=== PATIENT | female | born 1965 | race Caucasian/White ===

== ENCOUNTER 2022-04-05 07:01 | Inpatient (IN) | payer BC ==
[2022-04-05] MEDS ORDERED: Acetaminophen 325 MG TAB PO PRN (07:15)
[2022-04-05] MEDS ORDERED: Ondansetron ODT 4 MG TAB SL PRN (07:15)
[2022-04-05] MEDS ORDERED: Ondansetron PF 4 MG/2 ML Vial IVP PRN (07:15)
[2022-04-05] MEDS ORDERED: Sodium Bicarbonate 150 MEQ in Dextrose 5% in Water 1,000 ML IV SCH (07:15)
[2022-04-05] MEDS ORDERED: hydrALAZINE 20 MG/ML VIAL SLOW IVP SCH (08:30)
[2022-04-05] MEDS ORDERED: HumaLOG 300 UNITS/3 ML VIAL SC PRN (09:13)
[2022-04-05] MEDS ORDERED: Dextrose 50% Abboject 50 ML SYRINGE SLOW IVP PRN (09:13)
[2022-04-05] MEDS ORDERED: Dextrose 5% in Water 1,000 ML IV PRN (09:13)
[2022-04-05] MEDS: Timolol 0.5% Ophth Soln 5 ml Bottle EA EYE SCH ×2 (10:37→20:30)
[2022-04-05] MEDS: Brimonidine Tartrate 0.2% Ophth Soln 5 ml Bottle EA EYE SCH ×2 (10:37→20:30)
[2022-04-05] MEDS: Amlodipine 5 MG TAB PO SCH (10:37)
[2022-04-05] MEDS: cefTRIAXone\\ROCEPHIN 1 GM in Sodium Chloride 0.9% 100 ML IVPB SCH (10:43)
[2022-04-05 10:45] LABS: Hemoglobin 9.6 g/dL (12.0-16.0); Platelet Count 113 thou/uL (130-400)
[2022-04-05 11:01] LABS: Anion Gap 19 mmol/L (10-20); BUN (Urea Nitrogen) 92 mg/dL (9.8-20.1); Calc. Creatinine Clearance 8 mL/min (70-130); Calcium 8.1 mg/dL (7.8-10.44); Carbon Dioxide 15 mmol/L (22-29); Chloride 110 mmol/L (98-107); Estimated GFR 4; Glucose 85 mg/dL (70-105); Potassium 4.2 mmol/L (3.5-5.1); Sodium 140 mmol/L (136-145)
[2022-04-05 12:05] LABS: Hemoglobin 8.6 g/dL (12.0-16.0)
[2022-04-05 12:17] LABS: Glucose 77 mg/dL (70-105)
[2022-04-05] MEDS: hydrALAZINE 20 MG/ML VIAL SLOW IVP PRN (13:40)
[2022-04-05 16:53] LABS: Glucose 92 mg/dL (70-105)
[2022-04-05] MEDS: Carvedilol 25 MG TAB PO SCH (17:09)
[2022-04-05 18:18] LABS: Bacteria/HPF 1+ HPF (None Seen); Bilirubin Negative (Negative); Blood, Urine 2+ (Negative); Clarity Clear (Clear); Glucose, Urine (Dipstick) 70 mg/dL (Negative); Ketone, Urine Negative (Negative); Leukocyte 75 Leu/uL (Negative); Nitrite Negative (Negative); Protein, Urine (Dipstick) 300 mg/dL (Neg-Trace); RBC/HPF 0-3 HPF (0-3); Specific Gravity, Urine 1.008 (1.002-1.036); Squamous Epithelial 0-3 HPF (0-3); Urobilinogen Normal mg/dL (Less than 2)
[2022-04-05 18:19] LABS: Urine Culture Reflex Yes Yes
[2022-04-05] MEDS ORDERED: Sodium Chloride 0.65% Nasal 44 ML BOT EA NARE PRN (20:11)
[2022-04-05] MEDS: Loratadine 10 MG TAB PO PRN (20:30)
[2022-04-05] MEDS: Rosuvastatin 10 MG TAB PO SCH (20:30)
[2022-04-05 20:43] LABS: Albumin 3.3 g/dL (3.5-5.0)
[2022-04-05 20:46] LABS: Globulin 3.2 g/dL (2.4-3.5); Protein, Total 6.5 g/dL (6.0-8.3)
[2022-04-05 20:47] LABS: Bilirubin, Total 0.5 mg/dL (0.2-1.2)
[2022-04-05 20:48] LABS: Alkaline Phosphatase 70 U/L (40-110)
[2022-04-05 20:50] LABS: AST (SGOT) 33 U/L (5-34)
[2022-04-05 20:51] LABS: ALT (SGPT) 19 U/L (8-55)
[2022-04-05 20:57] LABS: Glucose 178 mg/dL (70-105)
[2022-04-05] MEDS: Insulin Glargine 30 UNITS/0.3 ML VIAL SC SCH (21:22)
[2022-04-06] MEDS: hydrALAZINE 20 MG/ML VIAL SLOW IVP PRN ×2 (00:03→05:41)
[2022-04-06] MEDS: Acetaminophen 325 MG TAB PO PRN ×2 (01:31→10:13)
[2022-04-06 04:50] LABS: ALT (SGPT) 17 U/L (8-55); AST (SGOT) 31 U/L (5-34); Alkaline Phosphatase 64 U/L (40-110); Anion Gap 20 mmol/L (10-20); BUN (Urea Nitrogen) 88 mg/dL (9.8-20.1); Bilirubin, Total 0.4 mg/dL (0.2-1.2); Calc. Creatinine Clearance 8 mL/min (70-130); Calcium 7.9 mg/dL (7.8-10.44); Carbon Dioxide 17 mmol/L (22-29); Chloride 107 mmol/L (98-107); Estimated GFR 4; Globulin 2.9 g/dL (2.4-3.5); Glucose 67 mg/dL (70-105); Potassium 4.2 mmol/L (3.5-5.1); Protein, Total 5.9 g/dL (6.0-8.3); Sodium 140 mmol/L (136-145)
[2022-04-06 05:19] LABS: #Eosinphils 0.1 thou/uL (0.0-0.7); #Lymphocytes 0.7 thou/uL (1.20-3.40); #Monocytes 0.4 thou/uL (0.11-0.59); #Neutrophils 3.3 thou/uL (1.40-6.50); %Basophils 0.4 % (0.0-1.0); %Eosinophils 2.3 % (0.0-10.0); %Lymphocytes 14.3 % (21.0-51.0); %Monocytes 9.5 % (0.0-10.0); %Neutrophils 73.6 % (42.0-75.0); Hemoglobin 8.5 g/dL (12.0-16.0); Mean Corpuscular HGB CONC 33.9 g/dL (32.0-36.0); Mean Corpuscular Hemoglobin 30.7 pg (27.0-31.0); Mean Corpuscular Volume 90.6 fL (78.0-98.0); Mean Platelet Volume 7.3 fL (7.4-10.4); Platelet Count 105 thou/uL (130-400); RBC Distribution Width 12.1 % (11.5-14.5); Red Blood Cell (RBC) Count 2.76 mill/uL (4.20-5.40); White Blood Cell (WBC) Count 4.5 thou/uL (4.8-10.8)
[2022-04-06] MEDS: cefTRIAXone\\ROCEPHIN 1 GM in Sodium Chloride 0.9% 100 ML IVPB SCH (10:09)
[2022-04-06] MEDS: Brimonidine Tartrate 0.2% Ophth Soln 5 ml Bottle EA EYE SCH ×2 (10:10→20:49)
[2022-04-06] MEDS: Carvedilol 25 MG TAB PO SCH ×2 (10:10→16:26)
[2022-04-06] MEDS: Timolol 0.5% Ophth Soln 5 ml Bottle EA EYE SCH ×2 (10:10→20:49)
[2022-04-06] MEDS: Amlodipine 5 MG TAB PO SCH (10:10)
[2022-04-06] MEDS: Loratadine 10 MG TAB PO PRN (10:10)
[2022-04-06] MEDS: Rosuvastatin 10 MG TAB PO SCH (20:46)
[2022-04-06] MEDS: Insulin Glargine 30 UNITS/0.3 ML VIAL SC SCH (20:47)
[2022-04-06] MEDS: Melatonin 3 MG TAB PO PRN (20:47)
[2022-04-07] MEDS: Acetaminophen 325 MG TAB PO PRN ×2 (01:30→20:15)
[2022-04-07 04:38] LABS: Iron 72 ug/dL (50-170); Iron Binding Capacity, Total 198 mcg/dL (265-497)
[2022-04-07 05:01] LABS: Ferritin 195.65 ng/mL (10-291)
[2022-04-07] MEDS: Brimonidine Tartrate 0.2% Ophth Soln 5 ml Bottle EA EYE SCH ×2 (09:19→20:16)
[2022-04-07] MEDS: Amlodipine 5 MG TAB PO SCH (09:20)
[2022-04-07] MEDS: Loratadine 10 MG TAB PO PRN (09:20)
[2022-04-07] MEDS: cefTRIAXone\\ROCEPHIN 1 GM in Sodium Chloride 0.9% 100 ML IVPB SCH (09:21)
[2022-04-07] MEDS: Timolol 0.5% Ophth Soln 5 ml Bottle EA EYE SCH ×2 (09:21→20:16)
[2022-04-07] MEDS: Carvedilol 25 MG TAB PO SCH ×2 (09:28→17:23)
[2022-04-07 10:49] LABS: Anion Gap 16 mmol/L (10-20); BUN (Urea Nitrogen) 86 mg/dL (9.8-20.1); Calc. Creatinine Clearance 8 mL/min (70-130); Calcium 7.5 mg/dL (7.8-10.44); Carbon Dioxide 18 mmol/L (22-29); Chloride 102 mmol/L (98-107); Estimated GFR 4; Glucose 82 mg/dL (70-105); Potassium 4.3 mmol/L (3.5-5.1); Sodium 132 mmol/L (136-145)
[2022-04-07] MEDS ORDERED: Tuberculin PPD 0.1 ML VIAL I-DERMAL SCH (16:00)
[2022-04-07] MEDS ORDERED: GoLYTELY 4,000 ml Bottle PO SCH (16:00)
[2022-04-07] MEDS: Epoetin (ESRD) 10,000 UNITS/ML VIAL SC SCH (17:23)
[2022-04-07] MEDS: Melatonin 3 MG TAB PO PRN (20:15)
[2022-04-07] MEDS: Rosuvastatin 10 MG TAB PO SCH (20:15)
[2022-04-07] MEDS: Insulin Glargine 30 UNITS/0.3 ML VIAL SC SCH (20:16)
[2022-04-08] MEDS ORDERED: Heparin 10,000 UNITS/ 10 ML VIAL SLOW IVP SCH (01:30)
[2022-04-08] MEDS ORDERED: Heparin 25,000 units/D5W 500 ML IVPB SCH (01:30)
[2022-04-08 01:57] LABS: Hemoglobin 7.9 g/dL (12.0-16.0); Platelet Count 76 thou/uL (130-400)
[2022-04-08 02:03] LABS: INR-International Normal Ratio 1.1; PTT 32.3 sec (22.9-36.1); Prothrombin Time 14.4 sec (12.0-14.7)
[2022-04-08 03:40] LABS: HBSAB Concentration Less than 8.00 mIU/mL; HBSAg Index 0.25 S/CO (0-0.99); Hep B Core Total Ab Non-Reactive (NonReactive); Hep B Core Total Index 0.17 S/CO (0-0.79); Hep B Surf AB Non-Reactive (NonReactive); Hep B Surf Ag Non-Reactive S/CO (NonReactive); Hep C IgG Ab Non-Reactive (NonReactive); Hep C Index 0.14 S/CO (0-0.79)
[2022-04-08] MEDS: Ondansetron PF 4 MG/2 ML Vial IVP PRN (05:37)
[2022-04-08] MEDS: Carvedilol 25 MG TAB PO SCH ×2 (08:45→17:17)
[2022-04-08] MEDS: Amlodipine 5 MG TAB PO SCH (08:46)
[2022-04-08] MEDS: cefTRIAXone\\ROCEPHIN 1 GM in Sodium Chloride 0.9% 100 ML IVPB SCH (08:46)
[2022-04-08] MEDS: Timolol 0.5% Ophth Soln 5 ml Bottle EA EYE SCH ×2 (08:46→21:07)
[2022-04-08] MEDS: Brimonidine Tartrate 0.2% Ophth Soln 5 ml Bottle EA EYE SCH ×2 (08:47→21:08)
[2022-04-08] MEDS ORDERED: Famotidine/PF 20 mg/2ml Vial ONE ×2 (10:20→10:36)
[2022-04-08] MEDS ORDERED: Protamine Sulfate 50 MG/5 ML VIAL ONE (10:25)
[2022-04-08] MEDS ORDERED: Lidocaine 1% w/Epinephrine 1:100K 20 ML VIAL ONE (10:25)
[2022-04-08] MEDS ORDERED: Heparin 10,000 UNITS/ 10 ML VIAL ONE ×2 (10:25→13:12)
[2022-04-08] MEDS ORDERED: Bupivacaine 0.25% HCL 30 ML VIAL ONE (10:25)
[2022-04-08] MEDS ORDERED: Heparin 5,000 UNITS/ML VIAL ONE (10:25)
[2022-04-08] MEDS ORDERED: Midazolam HCl 2 mg/2 ml Vial ONE ×2 (10:26→11:04)
[2022-04-08] MEDS ORDERED: Fentanyl 100 MCG/2 ML VIAL ONE ×2 (10:26→12:48)
[2022-04-08] MEDS ORDERED: Propofol 500 MG/50 ML VIAL ONE ×2 (10:36→10:37)
[2022-04-08] MEDS ORDERED: fentaNYL Citrate/PF 100 MCG/2 ML SYRINGE ONE (10:36)
[2022-04-08] MEDS ORDERED: Lidocaine 2% w/Epinephrine 1:200K 20 ML VIAL ONE (11:01)
[2022-04-08] MEDS ORDERED: diphenhydrAMINE 50 MG/ML VIAL ONE (11:01)
[2022-04-08] MEDS ORDERED: PROPOFOL 200 MG/20 ML VIAL ONE (11:01)
[2022-04-08] MEDS ORDERED: Dexamethasone 20 MG/5 ML VIAL ONE (11:01)
[2022-04-08] MEDS ORDERED: Ropivacaine 0.5% HCl/PF (150 MG/30 ML VIAL) ONE (11:01)
[2022-04-08] MEDS ORDERED: Promethazine HCl 25 MG/ML VIAL IVPB PRN (12:47)
[2022-04-08] MEDS ORDERED: Ondansetron HCl/PF 4 MG/2 ML Vial IVP PRN (12:47)
[2022-04-08] MEDS ORDERED: Promethazine HCl 25 MG/ML VIAL IM PRN (12:47)
[2022-04-08] MEDS ORDERED: Promethazine HCl 25 MG/ML VIAL ONE (12:48)
[2022-04-08] MEDS ORDERED: Acetaminophen 500 MG TAB PO SCH (13:00)
[2022-04-08 13:37] LABS: Hematocrit 27.7 % (34.0-46.6); RBC Folate Test Component 2040 ng/mL (>498)
[2022-04-08] MEDS: Rosuvastatin 10 MG TAB PO SCH (21:06)
[2022-04-08] MEDS: Insulin Glargine 30 UNITS/0.3 ML VIAL SC SCH (21:08)
[2022-04-08] MEDS: hydrALAZINE 20 MG/ML VIAL SLOW IVP PRN (21:09)
[2022-04-08] MEDS: Melatonin 3 MG TAB PO PRN (21:26)
[2022-04-08] MEDS: Acetaminophen 500 MG TAB PO PRN (22:35)
[2022-04-09 06:19] LABS: Anion Gap 21 mmol/L (10-20); BUN (Urea Nitrogen) 66 mg/dL (9.8-20.1); Calc. Creatinine Clearance 10 mL/min (70-130); Calcium 7.8 mg/dL (7.8-10.44); Carbon Dioxide 17 mmol/L (22-29); Chloride 102 mmol/L (98-107); Estimated GFR 5; Glucose 144 mg/dL (70-105); Potassium 4.6 mmol/L (3.5-5.1); Sodium 135 mmol/L (136-145)
[2022-04-09 06:55] LABS: Hemoglobin 7.9 g/dL (12.0-16.0)
[2022-04-09] MEDS: traMADol HCl 50 MG TAB PO PRN (07:34)
[2022-04-09] MEDS ORDERED: READ PPD TEST SITE PO SCH (09:00)
[2022-04-09] MEDS ORDERED: Heparin 10,000 UNITS/ 10 ML VIAL ONE (13:13)
[2022-04-09] MEDS: Carvedilol 25 MG TAB PO SCH ×2 (14:09→15:51)
[2022-04-09] MEDS: Brimonidine Tartrate 0.2% Ophth Soln 5 ml Bottle EA EYE SCH ×2 (14:10→22:02)
[2022-04-09] MEDS: Timolol 0.5% Ophth Soln 5 ml Bottle EA EYE SCH ×2 (14:10→22:02)
[2022-04-09] MEDS: Amlodipine 5 MG TAB PO SCH (15:51)
[2022-04-09] MEDS: cefTRIAXone\\ROCEPHIN 1 GM in Sodium Chloride 0.9% 100 ML IVPB SCH (15:51)
[2022-04-09] MEDS: Rosuvastatin 10 MG TAB PO SCH (22:01)
[2022-04-09] MEDS: Insulin Glargine 30 UNITS/0.3 ML VIAL SC SCH (22:01)
[2022-04-09] MEDS: Melatonin 3 MG TAB PO PRN (22:08)
[2022-04-10 03:31] LABS: #Eosinphils 0.1 thou/uL (0.0-0.7); #Lymphocytes 1.1 thou/uL (1.20-3.40); #Monocytes 0.4 thou/uL (0.11-0.59); %Basophils 0.6 % (0.0-1.0); %Eosinophils 1.5 % (0.0-10.0); %Lymphocytes 30.9 % (21.0-51.0); %Monocytes 10.3 % (0.0-10.0); %Neutrophils 56.7 % (42.0-75.0); Hemoglobin 7.5 g/dL (12.0-16.0); Mean Corpuscular HGB CONC 35.8 g/dL (32.0-36.0); Mean Corpuscular Hemoglobin 33.4 pg (27.0-31.0); Mean Corpuscular Volume 93.3 fL (78.0-98.0); Mean Platelet Volume 7.6 fL (7.4-10.4); Platelet Count 93 thou/uL (130-400); RBC Distribution Width 11.7 % (11.5-14.5); Red Blood Cell (RBC) Count 2.26 mill/uL (4.20-5.40); White Blood Cell (WBC) Count 3.5 thou/uL (4.8-10.8)
[2022-04-10 03:48] LABS: ALT (SGPT) 15 U/L (8-55); AST (SGOT) 22 U/L (5-34); Albumin 2.7 g/dL (3.5-5.0); Alkaline Phosphatase 59 U/L (40-110); Anion Gap 17 mmol/L (10-20); BUN (Urea Nitrogen) 39 mg/dL (9.8-20.1); Bilirubin, Total 0.2 mg/dL (0.2-1.2); Calc. Creatinine Clearance 13 mL/min (70-130); Calcium 7.4 mg/dL (7.8-10.44); Carbon Dioxide 24 mmol/L (22-29); Chloride 97 mmol/L (98-107); Estimated GFR 7; Globulin 2.6 g/dL (2.4-3.5); Glucose 140 mg/dL (70-105); Magnesium 1.6 mg/dL (1.6-2.6); Potassium 3.8 mmol/L (3.5-5.1); Protein, Total 5.3 g/dL (6.0-8.3); Sodium 134 mmol/L (136-145)
[2022-04-10] MEDS: Acetaminophen 500 MG TAB PO PRN ×2 (05:41→11:54)
[2022-04-10] MEDS: Brimonidine Tartrate 0.2% Ophth Soln 5 ml Bottle EA EYE SCH ×2 (11:53→21:25)
[2022-04-10] MEDS: Amlodipine 5 MG TAB PO SCH (11:54)
[2022-04-10] MEDS: Carvedilol 25 MG TAB PO SCH ×2 (11:54→16:59)
[2022-04-10] MEDS: Timolol 0.5% Ophth Soln 5 ml Bottle EA EYE SCH ×2 (11:56→21:25)
[2022-04-10] MEDS: cefTRIAXone\\ROCEPHIN 1 GM in Sodium Chloride 0.9% 100 ML IVPB SCH (13:12)
[2022-04-10] MEDS: Loratadine 10 MG TAB PO PRN (13:18)
[2022-04-10] MEDS: Rosuvastatin 10 MG TAB PO SCH (21:25)
[2022-04-10] MEDS: Insulin Glargine 30 UNITS/0.3 ML VIAL SC SCH (21:26)
[2022-04-10] MEDS: Melatonin 3 MG TAB PO PRN (21:28)
[2022-04-11] MEDS: Acetaminophen 500 MG TAB PO PRN ×3 (03:58→20:52)
[2022-04-11 04:36] LABS: #Eosinphils 0.1 thou/uL (0.0-0.7); #Lymphocytes 0.9 thou/uL (1.20-3.40); #Monocytes 0.5 thou/uL (0.11-0.59); #Neutrophils 1.9 thou/uL (1.40-6.50); %Eosinophils 3.5 % (0.0-10.0); %Lymphocytes 26.2 % (21.0-51.0); %Monocytes 13.8 % (0.0-10.0); %Neutrophils 55.6 % (42.0-75.0); Hemoglobin 7.5 g/dL (12.0-16.0); Mean Corpuscular HGB CONC 34.5 g/dL (32.0-36.0); Mean Corpuscular Hemoglobin 32.3 pg (27.0-31.0); Mean Corpuscular Volume 93.5 fL (78.0-98.0); Mean Platelet Volume 8.1 fL (7.4-10.4); Platelet Count 90 thou/uL (130-400); RBC Distribution Width 11.9 % (11.5-14.5); Red Blood Cell (RBC) Count 2.32 mill/uL (4.20-5.40); White Blood Cell (WBC) Count 3.4 thou/uL (4.8-10.8)
[2022-04-11 04:54] LABS: ALT (SGPT) 19 U/L (8-55); AST (SGOT) 30 U/L (5-34); Albumin 2.8 g/dL (3.5-5.0); Alkaline Phosphatase 58 U/L (40-110); Anion Gap 14 mmol/L (10-20); BUN (Urea Nitrogen) 23 mg/dL (9.8-20.1); Bilirubin, Total 0.3 mg/dL (0.2-1.2); Calc. Creatinine Clearance 16 mL/min (70-130); Calcium 7.5 mg/dL (7.8-10.44); Carbon Dioxide 25 mmol/L (22-29); Chloride 98 mmol/L (98-107); Estimated GFR 9; Globulin 2.6 g/dL (2.4-3.5); Glucose 87 mg/dL (70-105); Magnesium 1.5 mg/dL (1.6-2.6); Potassium 3.5 mmol/L (3.5-5.1); Protein, Total 5.4 g/dL (6.0-8.3); Sodium 133 mmol/L (136-145)
[2022-04-11] MEDS: hydrALAZINE 20 MG/ML VIAL SLOW IVP PRN (05:32)
[2022-04-11] MEDS: Timolol 0.5% Ophth Soln 5 ml Bottle EA EYE SCH ×2 (09:54→20:53)
[2022-04-11] MEDS: Brimonidine Tartrate 0.2% Ophth Soln 5 ml Bottle EA EYE SCH ×2 (09:54→20:52)
[2022-04-11] MEDS: Ondansetron PF 4 MG/2 ML Vial IVP PRN (09:55)
[2022-04-11] MEDS: Carvedilol 25 MG TAB PO SCH ×2 (09:55→16:27)
[2022-04-11] MEDS: Amlodipine 5 MG TAB PO SCH (09:55)
[2022-04-11] MEDS: Loratadine 10 MG TAB PO PRN (09:55)
[2022-04-11] MEDS: cefTRIAXone\\ROCEPHIN 1 GM in Sodium Chloride 0.9% 100 ML IVPB SCH ×2 (11:24→16:26)
[2022-04-11] MEDS: ALPRAZolam 0.25 MG TAB PO PRN (12:17)
[2022-04-11] MEDS: hydrALAZINE 25 MG TAB PO SCH ×2 (16:26→20:51)
[2022-04-11] MEDS: Insulin Glargine 30 UNITS/0.3 ML VIAL SC SCH (20:50)
[2022-04-11] MEDS: Rosuvastatin 10 MG TAB PO SCH (20:50)
[2022-04-11] MEDS: Melatonin 3 MG TAB PO PRN (20:52)
[2022-04-12 05:34] LABS: #Eosinphils 0.1 thou/uL (0.0-0.7); #Lymphocytes 0.8 thou/uL (1.20-3.40); #Monocytes 0.4 thou/uL (0.11-0.59); #Neutrophils 1.7 thou/uL (1.40-6.50); %Basophils 0.4 % (0.0-1.0); %Eosinophils 3.7 % (0.0-10.0); %Lymphocytes 26.2 % (21.0-51.0); %Monocytes 13.1 % (0.0-10.0); %Neutrophils 56.6 % (42.0-75.0); Hemoglobin 7.4 g/dL (12.0-16.0); Mean Corpuscular HGB CONC 33.4 g/dL (32.0-36.0); Mean Corpuscular Hemoglobin 31.6 pg (27.0-31.0); Mean Corpuscular Volume 94.7 fL (78.0-98.0); Mean Platelet Volume 7.7 fL (7.4-10.4); Platelet Count 98 thou/uL (130-400); RBC Distribution Width 11.7 % (11.5-14.5); Red Blood Cell (RBC) Count 2.33 mill/uL (4.20-5.40)
[2022-04-12 05:55] LABS: ALT (SGPT) 17 U/L (8-55); AST (SGOT) 28 U/L (5-34); Albumin 2.8 g/dL (3.5-5.0); Alkaline Phosphatase 60 U/L (40-110); Anion Gap 16 mmol/L (10-20); BUN (Urea Nitrogen) 28 mg/dL (9.8-20.1); Bilirubin, Total 0.3 mg/dL (0.2-1.2); Calc. Creatinine Clearance 13 mL/min (70-130); Calcium 7.7 mg/dL (7.8-10.44); Carbon Dioxide 22 mmol/L (22-29); Chloride 96 mmol/L (98-107); Estimated GFR 7; Globulin 2.6 g/dL (2.4-3.5); Glucose 83 mg/dL (70-105); Magnesium 1.5 mg/dL (1.6-2.6); Potassium 3.5 mmol/L (3.5-5.1); Protein, Total 5.4 g/dL (6.0-8.3); Sodium 130 mmol/L (136-145)
[2022-04-12] MEDS: Acetaminophen 500 MG TAB PO PRN (07:35)
[2022-04-12] MEDS ORDERED: Heparin 10,000 UNITS/ 10 ML VIAL ONE (07:58)
[2022-04-12] MEDS: Brimonidine Tartrate 0.2% Ophth Soln 5 ml Bottle EA EYE SCH ×2 (08:27→21:10)
[2022-04-12] MEDS: Timolol 0.5% Ophth Soln 5 ml Bottle EA EYE SCH ×2 (08:27→21:11)
[2022-04-12] MEDS: Amlodipine 5 MG TAB PO SCH (08:27)
[2022-04-12] MEDS: hydrALAZINE 25 MG TAB PO SCH ×3 (08:27→21:14)
[2022-04-12] MEDS: Carvedilol 25 MG TAB PO SCH ×2 (08:27→17:53)
[2022-04-12] MEDS: Loratadine 10 MG TAB PO PRN (08:34)
[2022-04-12] MEDS: ALPRAZolam 0.25 MG TAB PO PRN (09:13)
[2022-04-12] MEDS: Ondansetron PF 4 MG/2 ML Vial IVP PRN (09:13)
[2022-04-12] MEDS: cefTRIAXone\\ROCEPHIN 1 GM in Sodium Chloride 0.9% 100 ML IVPB SCH (14:45)
[2022-04-12] MEDS: NIFEdipine XL 30 MG TAB PO SCH (21:13)
[2022-04-12] MEDS: Insulin Glargine 30 UNITS/0.3 ML VIAL SC SCH (21:15)
[2022-04-12] MEDS: Melatonin 3 MG TAB PO PRN (21:15)
[2022-04-12] MEDS: Rosuvastatin 10 MG TAB PO SCH (21:15)
[2022-04-13] MEDS: Acetaminophen 500 MG TAB PO PRN (06:55)
[2022-04-13 06:56] LABS: #Eosinphils 0.1 thou/uL (0.0-0.7); #Lymphocytes 0.7 thou/uL (1.20-3.40); #Monocytes 0.4 thou/uL (0.11-0.59); #Neutrophils 1.7 thou/uL (1.40-6.50); %Basophils 0.3 % (0.0-1.0); %Eosinophils 2.2 % (0.0-10.0); %Lymphocytes 25.1 % (21.0-51.0); %Monocytes 12.8 % (0.0-10.0); %Neutrophils 59.6 % (42.0-75.0); Hemoglobin 7.1 g/dL (12.0-16.0); Mean Corpuscular HGB CONC 34.5 g/dL (32.0-36.0); Mean Corpuscular Hemoglobin 31.9 pg (27.0-31.0); Mean Corpuscular Volume 92.5 fL (78.0-98.0); Mean Platelet Volume 7.8 fL (7.4-10.4); Platelet Count 86 thou/uL (130-400); Red Blood Cell (RBC) Count 2.21 mill/uL (4.20-5.40); White Blood Cell (WBC) Count 2.8 thou/uL (4.8-10.8)
[2022-04-13] MEDS: Carvedilol 25 MG TAB PO SCH ×2 (09:20→18:31)
[2022-04-13] MEDS: NIFEdipine XL 30 MG TAB PO SCH ×2 (09:20→21:43)
[2022-04-13] MEDS: Brimonidine Tartrate 0.2% Ophth Soln 5 ml Bottle EA EYE SCH ×2 (09:21→21:44)
[2022-04-13] MEDS: hydrALAZINE 25 MG TAB PO SCH ×3 (09:21→21:43)
[2022-04-13] MEDS: Timolol 0.5% Ophth Soln 5 ml Bottle EA EYE SCH ×2 (09:23→21:44)
[2022-04-13] MEDS: Loratadine 10 MG TAB PO PRN (09:28)
[2022-04-13] MEDS: traMADol HCl 50 MG TAB PO PRN (09:29)
[2022-04-13] MEDS: cefTRIAXone\\ROCEPHIN 1 GM in Sodium Chloride 0.9% 100 ML IVPB SCH (15:18)
[2022-04-13] MEDS: Insulin Glargine 30 UNITS/0.3 ML VIAL SC SCH (21:43)
[2022-04-13] MEDS: Rosuvastatin 10 MG TAB PO SCH (21:43)
[2022-04-13] MEDS: Melatonin 3 MG TAB PO PRN (21:53)
[2022-04-14] MEDS: Acetaminophen 500 MG TAB PO PRN ×3 (03:00→18:02)
[2022-04-14] MEDS: hydrALAZINE 25 MG TAB PO SCH ×3 (07:52→21:10)
[2022-04-14] MEDS: NIFEdipine XL 30 MG TAB PO SCH ×2 (07:52→21:09)
[2022-04-14] MEDS: Ondansetron PF 4 MG/2 ML Vial IVP PRN (07:52)
[2022-04-14] MEDS: Carvedilol 25 MG TAB PO SCH ×2 (07:52→17:51)
[2022-04-14] MEDS: Brimonidine Tartrate 0.2% Ophth Soln 5 ml Bottle EA EYE SCH ×2 (07:53→21:09)
[2022-04-14] MEDS: Timolol 0.5% Ophth Soln 5 ml Bottle EA EYE SCH ×2 (07:53→21:09)
[2022-04-14] MEDS: ALPRAZolam 0.25 MG TAB PO PRN (08:04)
[2022-04-14] MEDS: Loratadine 10 MG TAB PO PRN (08:04)
[2022-04-14] MEDS ORDERED: Heparin 10,000 UNITS/ 10 ML VIAL ONE (09:22)
[2022-04-14 14:02] VITALS: BMI 30.7
[2022-04-14] MEDS ORDERED: Epoetin (ESRD) 20,000 UNITS/ML SC SCH (17:15)
[2022-04-14] MEDS: Epoetin (ESRD) 10,000 UNITS/ML VIAL SC SCH (18:04)
[2022-04-14] MEDS: Rosuvastatin 10 MG TAB PO SCH (21:10)
[2022-04-14] MEDS: Insulin Glargine 30 UNITS/0.3 ML VIAL SC SCH (21:10)
[2022-04-14] MEDS: Melatonin 3 MG TAB PO PRN (21:27)
[2022-04-15] MEDS: Acetaminophen 500 MG TAB PO PRN ×2 (02:52→12:07)
[2022-04-15] MEDS: traMADol HCl 50 MG TAB PO PRN ×2 (06:20→18:33)
[2022-04-15] MEDS: Ciprofloxacin 500 MG TAB PO SCH (08:39)
[2022-04-15] MEDS: Carvedilol 25 MG TAB PO SCH ×2 (08:39→16:38)
[2022-04-15] MEDS: NIFEdipine XL 30 MG TAB PO SCH ×2 (08:39→21:42)
[2022-04-15] MEDS: Timolol 0.5% Ophth Soln 5 ml Bottle EA EYE SCH ×2 (08:41→21:48)
[2022-04-15] MEDS: Brimonidine Tartrate 0.2% Ophth Soln 5 ml Bottle EA EYE SCH ×2 (08:41→21:43)
[2022-04-15] MEDS: ALPRAZolam 0.25 MG TAB PO PRN (08:44)
[2022-04-15] MEDS: Loratadine 10 MG TAB PO PRN (08:44)
[2022-04-15] MEDS: hydrALAZINE 25 MG TAB PO SCH ×4 (08:45→21:42)
[2022-04-15 09:28] LABS: ALT (SGPT) 15 U/L (8-55); AST (SGOT) 27 U/L (5-34); Albumin 2.8 g/dL (3.5-5.0); Alkaline Phosphatase 61 U/L (40-110); Anion Gap 13 mmol/L (10-20); BUN (Urea Nitrogen) 11 mg/dL (9.8-20.1); Bilirubin, Total 0.3 mg/dL (0.2-1.2); Calc. Creatinine Clearance 18 mL/min (70-130); Calcium 7.9 mg/dL (7.8-10.44); Carbon Dioxide 27 mmol/L (22-29); Chloride 97 mmol/L (98-107); Estimated GFR 10; Globulin 2.5 g/dL (2.4-3.5); Glucose 126 mg/dL (70-105); Potassium 3.5 mmol/L (3.5-5.1); Protein, Total 5.3 g/dL (6.0-8.3); Sodium 133 mmol/L (136-145)
[2022-04-15 09:44] LABS: #Eosinphils 0.1 thou/uL (0.0-0.7); #Lymphocytes 0.6 thou/uL (1.20-3.40); #Monocytes 0.4 thou/uL (0.11-0.59); #Neutrophils 1.4 thou/uL (1.40-6.50); %Basophils 0.3 % (0.0-1.0); %Eosinophils 3.5 % (0.0-10.0); %Lymphocytes 25.5 % (21.0-51.0); %Neutrophils 56.7 % (42.0-75.0); Hemoglobin 7.4 g/dL (12.0-16.0); Mean Corpuscular HGB CONC 33.9 g/dL (32.0-36.0); Mean Corpuscular Volume 94.2 fL (78.0-98.0); Mean Platelet Volume 7.5 fL (7.4-10.4); Platelet Count 106 thou/uL (130-400); RBC Distribution Width 12.6 % (11.5-14.5); Red Blood Cell (RBC) Count 2.31 mill/uL (4.20-5.40); White Blood Cell (WBC) Count 2.5 thou/uL (4.8-10.8)
[2022-04-15] MEDS ORDERED: AcetaZOLAMIDE 250 MG TAB PO SCH (13:30)
[2022-04-15] MEDS: Artificial Tear Sol 15 ML BOT EA EYE SCH ×4 (13:46→21:53)
[2022-04-15] MEDS: AcetaZOLAMIDE 250 MG TAB PO SCH (18:32)
[2022-04-15] MEDS ORDERED: Insulin Glargine 30 UNITS/0.3 ML VIAL SC SCH (21:00)
[2022-04-15] MEDS: Rosuvastatin 10 MG TAB PO SCH (21:41)
[2022-04-15] MEDS: Melatonin 3 MG TAB PO PRN (21:42)
[2022-04-16] MEDS: AcetaZOLAMIDE 250 MG TAB PO SCH ×3 (00:13→14:57)
[2022-04-16] MEDS: Artificial Tear Sol 15 ML BOT EA EYE SCH ×4 (00:14→12:45)
[2022-04-16] MEDS: Acetaminophen 500 MG TAB PO PRN ×2 (03:45→12:45)
[2022-04-16] MEDS: NIFEdipine XL 30 MG TAB PO SCH (08:54)
[2022-04-16] MEDS: Brimonidine Tartrate 0.2% Ophth Soln 5 ml Bottle EA EYE SCH (08:55)
[2022-04-16] MEDS: Carvedilol 25 MG TAB PO SCH (08:55)
[2022-04-16] MEDS: Ciprofloxacin 500 MG TAB PO SCH (08:55)
[2022-04-16] MEDS: Ondansetron PF 4 MG/2 ML Vial IVP PRN (08:55)
[2022-04-16] MEDS: ALPRAZolam 0.25 MG TAB PO PRN (08:55)
[2022-04-16] MEDS: hydrALAZINE 25 MG TAB PO SCH ×2 (08:55→14:58)
[2022-04-16] MEDS: Timolol 0.5% Ophth Soln 5 ml Bottle EA EYE SCH (08:56)
[2022-04-16] MEDS ORDERED: Heparin 10,000 UNITS/ 10 ML VIAL ONE (09:25)
[2022-04-16 15:00] VITALS: BP 138/71
[2022-04-16 15:14] VITALS: TEMP 98.7
== END 2022-04-16 16:00 | disposition home or self-care (01) | DRG 674 ==
LOC: 2NO 07:01 → SJJU 04-11 15:49
PROVIDERS: ADMIT Internal Medicine; ATTEND Internal Medicine
PROC: 30233N1 Transfusion of Nonautologous Red Blood Cells into Peripheral Vein, Percutaneous Approach (ICD-10-PCS; 2022-04-05)
PROC: 5A1D70Z Performance of Urinary Filtration, Intermittent, Less than 6 Hours Per Day (ICD-10-PCS; principal; 2022-04-08)
PROC: 031B0ZF Bypass Right Radial Artery to Lower Arm Vein, Open Approach (ICD-10-PCS; 2022-04-08)
PROC: 02HV33Z Insertion of Infusion Device into Superior Vena Cava, Percutaneous Approach (ICD-10-PCS; 2022-04-08)
PROC: 0JH60XZ Insertion of Tunneled Vascular Access Device into Chest Subcutaneous Tissue and Fascia, Open Approach (ICD-10-PCS; 2022-04-08)
PROC: B5181ZA Fluoroscopy of Superior Vena Cava using Low Osmolar Contrast, Guidance (ICD-10-PCS; 2022-04-08)
PROC: 02HV33Z Insertion of Infusion Device into Superior Vena Cava, Percutaneous Approach (ICD-10-PCS; 2022-04-08)
PROC: B548ZZA Ultrasonography of Superior Vena Cava, Guidance (ICD-10-PCS; 2022-04-08)
DX: N17.9 Acute kidney failure, unspecified (principal); E87.2 Acidosis; N39.0 Urinary tract infection, site not specified; T82.868A Thrombosis due to vascular prosthetic devices, implants and grafts, initial encounter; I82.612 Acute embolism and thrombosis of superficial veins of left upper extremity; I12.9 Hypertensive chronic kidney disease with stage 1 through stage 4 chronic kidney disease, or unspecified chronic kidney disease; E11.22 Type 2 diabetes mellitus with diabetic chronic kidney disease; Z20.822 Contact with and (suspected) exposure to COVID-19; E78.5 Hyperlipidemia, unspecified; D63.1 Anemia in chronic kidney disease; H40.9 Unspecified glaucoma; N18.6 End stage renal disease; G43.909 Migraine, unspecified, not intractable, without status migrainosus; K43.2 Incisional hernia without obstruction or gangrene; H54.40 Blindness, one eye, unspecified eye; E88.81 Metabolic syndrome and other insulin resistance; Y84.8 Other medical procedures as the cause of abnormal reaction of the patient, or of later complication, without mention of misadventure at the time of the procedure; Z88.5 Allergy status to narcotic agent; Z91.013 Allergy to seafood; Z88.8 Allergy status to other drugs, medicaments and biological substances; Z91.018 Allergy to other foods; Z99.2 Dependence on renal dialysis; Z85.038 Personal history of other malignant neoplasm of large intestine; Z79.899 Other long term (current) drug therapy; Z79.4 Long term (current) use of insulin; Z90.89 Acquired absence of other organs; Z90.49 Acquired absence of other specified parts of digestive tract; Z80.0 Family history of malignant neoplasm of digestive organs; Z80.42 Family history of malignant neoplasm of prostate; Z80.1 Family history of malignant neoplasm of trachea, bronchus and lung; Z90.710 Acquired absence of both cervix and uterus; Z90.722 Acquired absence of ovaries, bilateral
CPT/HCPCS: 36415; 36416; 70450; 71045; 76770; 80048; 80053; 82274; 82607; 82728; 82747; 83540; 83550; 83735; 85014; 85018; 85025; 85049; 85610; 85730; 86580; 86704; 86850; 86900; 86901; 87086; 87340; 90935; 93970; C1713; C1751; C1752; C1776; G0257; J0360; J0696; J1100; J1200; J1644; J1815; J2250; J2405; J2550; J2704; J2720; J2795; J3010; J3490; J7070; Q4081; S0020; S0028; U0003; U0005

== ENCOUNTER 2022-06-06 13:06 | Outpatient (CLI) | payer BC | END 2022-06-06 13:07 | disposition home or self-care (01) | LOC: DTY/OP 13:06 | PROVIDERS: ATTEND Internal Medicine | DX: N18.6 End stage renal disease (principal); Z99.2 Dependence on renal dialysis | CPT/HCPCS: 97802 ==

== ENCOUNTER → 2022-06-22 | Day surgery (SDC) | payer BC ==
[~2022-06-22] MED LIST: Sodium Bicarbonate 2.5 MEQ/5 ML VIAL ONE; diphenhydrAMINE 50 MG/ML VIAL ONE
[2022-06-22 08:10] VITALS: BP 165/79; TEMP 97.8
== END | disposition home or self-care (01) ==
LOC: SPEC 07:33
PROVIDERS: ATTEND Specialist
PROC: B51W1ZZ Fluoroscopy of Dialysis Shunt/Fistula using Low Osmolar Contrast (ICD-10-PCS; principal; 2022-06-22)
DX: T82.590A Other mechanical complication of surgically created arteriovenous fistula, initial encounter (principal); N18.6 End stage renal disease; Z79.899 Other long term (current) drug therapy; Z88.5 Allergy status to narcotic agent; Z88.8 Allergy status to other drugs, medicaments and biological substances; Z91.013 Allergy to seafood; Z91.018 Allergy to other foods
CPT/HCPCS: 36901; 76937; J1200

== ENCOUNTER 2023-08-01 08:21 | Day surgery (SDC) | payer BC, MEDICARE ==
[2023-08-01 08:15] LABS: Hemoglobin 7.8 g/dL (12.0-16.0); Mean Corpuscular HGB CONC 31.2 g/dL (32.0-36.0); Mean Corpuscular Hemoglobin 29.2 pg (27.0-31.0); Mean Corpuscular Volume 93.6 fl (78.0-98.0); Mean Platelet Volume 9.6 fL (7.4-10.4); Platelet Count 102 10x3/uL (130-400); RBC Distribution Width 18.4 % (11.5-14.5); Red Blood Cell (RBC) Count 2.67 mill/uL (4.20-5.40); White Blood Cell (WBC) Count 1.4 10x3/uL (4.8-10.8)
[2023-08-01 08:18] LABS: Delete Auto Diff?? YES; Manual Diff?? YES
[2023-08-01 08:24] LABS: INR-International Normal Ratio 1.2; PTT 30.9 sec (22.9-36.1); Prothrombin Time 15.3 sec (12.0-14.7)
[2023-08-01 08:54] LABS: Band 1 % (5-11); CellaVision Operator ID LAB.GE; Eosinophils 6 % (0-10); Lymphocytes 26 % (21-51); Monocytes 8 % (0-10); Neutrophil 57 % (42-75); Ovalocytes SLIGHT = 2-5 cells HPF (0-1); Platelet Adequacy Comment Platelets Decreased; Polychromasia SLIGHT = 2-3 cells HPF (0-2); Total Cell Count 101
[2023-08-01 10:47] VITALS: BP 151/71; TEMP 98.1
[2023-08-01] MEDS ORDERED: FLU VACC QS2023-24(6MOS UP)/PF 60 MCG/0.5 ML SYRINGE IM ONE (18:00)
[2023-08-23 11:17] LABS: Reference Lab Name NEOGENOMICS
== END 2023-08-01 12:25 | disposition home or self-care (01) ==
LOC: CT 08:21
PROVIDERS: ATTEND Internal Medicine
PROC: 07DR3ZX Extraction of Iliac Bone Marrow, Percutaneous Approach, Diagnostic (ICD-10-PCS; principal; 2023-08-01)
DX: D63.1 Anemia in chronic kidney disease (principal); D61.818 Other pancytopenia; D75.89 Other specified diseases of blood and blood-forming organs; N18.6 End stage renal disease; I12.0 Hypertensive chronic kidney disease with stage 5 chronic kidney disease or end stage renal disease; E11.22 Type 2 diabetes mellitus with diabetic chronic kidney disease; E78.00 Pure hypercholesterolemia, unspecified; F32.A Depression, unspecified; Z98.890 Other specified postprocedural states; Z88.8 Allergy status to other drugs, medicaments and biological substances; Z88.5 Allergy status to narcotic agent; Z91.013 Allergy to seafood; Z79.899 Other long term (current) drug therapy
CPT/HCPCS: 20225; 36415; 77012; 85025; 85097; 85610; 85730; 88184; 88185; 88189; 88237; 88264; 88280; 88305; 88311; 88313; 88341; 88342

== ENCOUNTER 2023-11-21 13:49 | Outpatient (CLI) | payer BC, MEDICARE | END 2023-11-21 13:50 | disposition home or self-care (01) | LOC: ULT 13:49 | PROVIDERS: ATTEND Internal Medicine | DX: R01.1 Cardiac murmur, unspecified (principal); I08.1 Rheumatic disorders of both mitral and tricuspid valves | CPT/HCPCS: 93306 ==